=== PATIENT | male | born 1975 | race Caucasian/White ===

== ENCOUNTER 2016-10-17 10:43 | Outpatient (CLI) | payer OTHER | END 2016-10-17 10:44 | disposition home or self-care (01) | DX: G47.30 Sleep apnea, unspecified (principal); G47.8 Other sleep disorders; G47.10 Hypersomnia, unspecified; R06.83 Snoring; M26.19 Other specified anomalies of jaw-cranial base relationship ==

== ENCOUNTER 2016-11-09 22:13 | Outpatient (CLI) | payer OTHER | END 2016-11-09 22:14 | disposition home or self-care (01) | LOC: SC 22:13 | PROVIDERS: ATTEND Internal Medicine Pulmonary Disease | DX: G47.61 Periodic limb movement disorder (principal) | CPT/HCPCS: 95810 ==

== ENCOUNTER 2016-12-01 09:07 | Outpatient (CLI) | payer OTHER | END 2016-12-01 09:08 | disposition home or self-care (01) | LOC: SC 09:07 | PROVIDERS: ATTEND Nurse Practitioner Family | DX: G47.61 Periodic limb movement disorder (principal); R06.83 Snoring | CPT/HCPCS: 99212; 99214 ==